=== PATIENT | female | born 1950 ===

== ENCOUNTER 2024-06-02 11:51 | Emergency (ER) | payer MEDICARE, OTHER ==
[2024-06-02] MEDS ORDERED: CEFAZOLIN 2 GM VIAL ONE (12:18)
[2024-06-02] MEDS ORDERED: fentaNYL 50 mcg/mL 1 mL Vial ONE (12:18)
[2024-06-02] MEDS ORDERED: Boostrix 0.5 ML (Tdap) VIAL (>/=7 yrs of age) ONE (12:19)
[2024-06-02] MEDS ORDERED: Sodium Chloride 0.9% 100 ML ONE (12:19)
[2024-06-02 12:21] LABS: #Basophils 0.03 10x3/uL (0.0-0.2); %Basophils 0.3 % (0.0-1.0); %Eosinophils 1.8 % (0.0-10.0); %Lymphocytes 16.2 % (21.0-51.0); %Monocytes 4.1 % (0.0-10.0); %Neutrophils 76.9 % (42.0-75.0); Hematocrit 38.7 % (36.0-47.0); Hemoglobin 13.1 g/dL (12.0-16.0); Mean Corpuscular HGB CONC 33.9 g/dL (32.0-36.0); Mean Corpuscular Hemoglobin 30.8 pg (27.0-31.0); Mean Corpuscular Volume 91.1 fL (78.0-98.0); Mean Platelet Volume 10.7 fL (7.4-10.4); Platelet Count 231 10x3/uL (130-400); RBC Distribution Width 11.9 % (11.5-14.5); Red Blood Cell (RBC) Count 4.25 mill/uL (4.20-5.40)
[2024-06-02 12:37] LABS: INR-International Normal Ratio 0.9; PTT 23.8 sec (22.9-36.1); Prothrombin Time 12.6 sec (12.0-14.7)
[2024-06-02 12:39] LABS: ALT (SGPT) 20 U/L (8-55); AST (SGOT) 25 U/L (5-34); Alkaline Phosphatase 88 U/L (40-110); Anion Gap 17 mmol/L (10-20); BUN (Urea Nitrogen) 27 mg/dL (9.8-20.1); Bilirubin, Total 0.7 mg/dL (0.2-1.2); Calc. Creatinine Clearance 0 mL/min (70-130); Calcium 9.7 mg/dL (7.8-10.44); Carbon Dioxide 22 mmol/L (23-31); Chloride 103 mmol/L (98-107); Estimated GFR 33; Glucose 159 mg/dL (83-110); Potassium 3.8 mmol/L (3.5-5.1); Sodium 138 mmol/L (136-145)
[2024-06-02] MEDS ORDERED: Morphine 4 MG/ML VIAL ONE (13:02)
[2024-06-02] MEDS ORDERED: Bacitracin Zinc Ointment 30 gm TUBE TOP SCH (13:45)
[2024-06-02] MEDS ORDERED: Ondansetron ODT 8 MG TAB ONE (14:32)
== END 2024-06-02 14:35 | disposition home or self-care (01) ==
LOC: ERS 11:51
DX: S62.632B Displaced fracture of distal phalanx of right middle finger, initial encounter for open fracture (principal); S61.214A Laceration without foreign body of right ring finger without damage to nail, initial encounter; S61.212A Laceration without foreign body of right middle finger without damage to nail, initial encounter; S61.215A Laceration without foreign body of left ring finger without damage to nail, initial encounter; I10 Essential (primary) hypertension; E78.5 Hyperlipidemia, unspecified; Z23 Encounter for immunization; Z79.899 Other long term (current) drug therapy; W54.0XXA Bitten by dog, initial encounter; Y93.89 Activity, other specified; M79.89 Other specified soft tissue disorders
CPT/HCPCS: 73130 ×2; 80053; 85025; 85610; 85730; 86850; 86900; 86901; 90471; 90715; 96374; 96375; 99283; J2272; J3010; Q0162

== ENCOUNTER 2025-04-09 13:47 | Emergency (ER) | payer MEDICARE, OTHER ==
[2025-04-09 14:49] LABS: Bacteria/HPF None Seen HPF (None Seen); CAUTI Indications for Culture Pelvic or flank pain; Glucose, Urine (Dipstick) Normal (Negative); Leukocyte 250 Leu/uL (Negative); Protein, Urine (Dipstick) Negative (Neg-Trace); RBC/HPF 0-3 HPF (0-3); Specific Gravity, Urine 1.005 (1.002-1.036)
[2025-04-09 14:52] LABS: Urine Culture Reflex No No
[2025-04-09] MEDS ORDERED: Gabapentin 300 MG CAP ONE (15:05)
[2025-04-09 15:24] LABS: #Basophils 0.03 10x3/uL (0.0-0.2); #Eosinophils 0.08 10x3/uL (0.0-0.7); #Monocytes 0.38 10x3/uL (0.11-0.59); #Neutrophils 5.07 10x3/uL (1.40-6.50); %Basophils 0.5 % (0.0-1.0); %Eosinophils 1.2 % (0.0-10.0); %Lymphocytes 15.8 % (21.0-51.0); %Monocytes 5.7 % (0.0-10.0); %Neutrophils 76.5 % (42.0-75.0); Hematocrit 33.9 % (36.0-47.0); Hemoglobin 11.0 g/dL (12.0-16.0); Mean Corpuscular Hemoglobin 30.1 pg (27.0-31.0); Mean Corpuscular Volume 92.9 fL (78.0-98.0); Platelet Count 183 10x3/uL (130-400); Red Blood Cell (RBC) Count 3.65 mill/uL (4.20-5.40); White Blood Cell (WBC) Count 6.63 10x3/uL (4.8-10.8)
[2025-04-09 15:46] LABS: ALT (SGPT) 38 U/L (Less than 34); AST (SGOT) 38 U/L (11-34); Albumin 4.0 g/dL (3.1-4.5); Alkaline Phosphatase 84 U/L (40-110); Anion Gap 16 mmol/L (10-20); BUN (Urea Nitrogen) 20 mg/dL (9.8-20.1); Bilirubin, Total 0.2 mg/dL (0.3-1.2); Calc. Creatinine Clearance 0 mL/min (70-130); Calcium 9.7 mg/dL (7.8-10.44); Carbon Dioxide 22 mmol/L (23-31); Chloride 100 mmol/L (98-107); Globulin 2.9 g/dL (2.4-3.5); Glucose 106 mg/dL (83-110); Lipase 84 U/L (8-78); Potassium 4.4 mmol/L (3.5-5.1); Sodium 134 mmol/L (136-145)
== END 2025-04-09 16:55 | disposition home or self-care (01) ==
LOC: ERS 13:47
DX: B02.29 Other postherpetic nervous system involvement (principal); I12.9 Hypertensive chronic kidney disease with stage 1 through stage 4 chronic kidney disease, or unspecified chronic kidney disease; N18.9 Chronic kidney disease, unspecified
CPT/HCPCS: 74176; 80053; 81001; 83690; 85025; 87086